=== PATIENT | male | born 1985 | race Caucasian/White ===

== ENCOUNTER 2018-06-10 17:02 | Emergency (ER) | payer SELFPAY ==
[2018-06-10 17:03] VITALS: BP 130/84; PULSE 102; RESP 18; TEMP 36.4; O2SAT 97; BMI 25.7
--- NOTE | 2018-06-10 17:40 | ED.VISSUMM ---
- ER Visit Summary Date of Service: 06/10/18 Chief Complaint: Intermittent right trapezius/shoulder and upper back pain for the past couple years History of Present Illness: The patient is a 32 M who is right-hand dominant presents with pain that is localized over the trapezius muscle, proximal humerus and para dorsal spine on the right. He denies any history of direct trauma. He denies radicular pain. He denies paresthesia, anesthesia buttocks. He denies any cardiac or respiratory symptoms. He states he had an MRI which reportedly revealed herniated disc. This MRI was not done at this facility. He states his former doctor was able look at his shoulder and tell him there was something wrong. Physical Examination: Vital signs noted. There is pain palpation over the trapezius muscle. There is pain with abduction past 90?. Axillary, median, radial and ulnar function intact. Biceps, brachialis and triceps reflex are 1+ and symmetric. Radial pulse is palpable and 2+. Motor strength is 5/5. Sensations intact. Heart is regular without murmur, gallop or rub. S1 and S2 are normal. Lungs are clear to auscultation with good movement of air bilaterally. There is reproducible right kari-dorsal discomfort. Test Results: None Emergency Department Course and Treatment: Naprosyn since there is no contraindication to NSAIDs Treatment Plan: Rest, ice and anti-inflammatory. Since his physician retired he is referred to Disposition: Discharge to home Impression: Right impingement syndrome Right trapezius/paradorsal muscle strain This note was generated with [employer] dictation software. It may contain incorrect words, spelling, and punctuation that were not noted in review of the chart prior to signing ED Disposition - Plan for ED Patient: Disposition: Home or Assisted Living Chief Complaint: Back Instructions: What Is Impingement Syndrome?, ED Sprain Thoracic Spine Prescriptions: Naproxen [Naprosyn] 500 mg PO BID #14 tablet Referrals: Care Physician,No Primary [Primary Care Provider] - Sandra Guan MD [COURTESY STAFF PHYSICIAN] - 3-5 Days Additional Instructions: Your prescription was electronically transmitted to [facility] pharmacy, your preferred pharmacy
[2018-06-10] MEDS: Naproxen 250 MG Tablet 500 MG PO (18:26)
[2018-06-10 18:30] VITALS: BP 135/84; PULSE 96; RESP 16; O2SAT 96
== END 2018-06-10 18:31 | disposition home or self-care (01) ==
LOC: ED 18:06
PROVIDERS: Emergency Provider Emergency Medicine
DX: M75.41 Impingement syndrome of right shoulder (principal); S29.012A Strain of muscle and tendon of back wall of thorax, initial encounter; S46.812A Strain of other muscles, fascia and tendons at shoulder and upper arm level, left arm, initial encounter; X58.XXXA Exposure to other specified factors, initial encounter; Y93.9 Activity, unspecified; Y92.9 Unspecified place or not applicable
CPT/HCPCS: 99282

== ENCOUNTER 2018-06-30 19:06 | Emergency (ER) | payer SELFPAY ==
[2018-06-30 19:07] VITALS: BP 146/74; PULSE 107; RESP 15; TEMP 36.6; O2SAT 96; BMI 22.7
--- NOTE | 2018-06-30 19:49 | ED.DCSUM_ITS ---
- ER Visit Summary Date of Service: 06/30/18 Chief Complaint: Neck pain History of Present Illness: The patient is a 32 M presenting with right-sided neck pain. He states this has been intermittent for the past 2 months. He states he does a lot of twisting and turning at work. Denies direct trauma. Denies numbness or weakness. He tried ibuprofen today at home. He does not currently have a primary care physician. Denies other complaints. Physical Examination: Vitals are stable. Patient is afebrile. Alert no acute distress. HEENT exam is unremarkable. Neck is right paraspinal cervical muscle tenderness, no midline tenderness Lungs are clear and equal bilaterally. Heart is regular rate and rhythm. Abdomen is soft nontender nondistended. Extremities are unremarkable. Skin is warm and dry. No focal neurologic deficit. Normal strength and sensation Remainder of exam is unremarkable. Emergency Department Course and Treatment: Patient is given prescription for Naprosyn and Flexeril. He is advised to follow-up with Dr. Guan examination scorer for no doc. Advised return to the ED for worsening complaints. Disposition: Discharge home Impression: Neck strain This note was generated with [employer] dictation software. It may contain incorrect words, spelling, and punctuation that were not noted in review of the chart prior to signing ED Disposition - Plan for ED Patient: Chief Complaint: Other, Pain/Inj Referrals: Care Physician,No Primary [Primary Care Provider] -
--- NOTE | 2018-06-30 19:49 | ED.DEP ---
ED Disposition - Plan for ED Patient: Chief Complaint: Other, Pain/Inj Instructions: ED Sprain Strain Neck Prescriptions: Naproxen [Naprosyn] 500 mg PO BID PRN #20 tablet Cyclobenzaprine [Flexeril] 10 mg PO TID PRN #20 tablet PRN Reason: Muscle Spasm Referrals: Care Physician,No Primary [Primary Care Provider] - Sandra Guan MD [COURTESY STAFF PHYSICIAN] -
[2018-06-30 20:07] VITALS: RESP 18
== END 2018-06-30 20:19 | disposition home or self-care (01) ==
PROVIDERS: Emergency Provider Emergency Medicine
DX: S16.1XXA Strain of muscle, fascia and tendon at neck level, initial encounter (principal); X50.1XXA Overexertion from prolonged static or awkward postures, initial encounter; Y93.9 Activity, unspecified; Y99.0 Civilian activity done for income or pay; Z72.0 Tobacco use
CPT/HCPCS: 99282

== ENCOUNTER 2019-07-05 05:55 | Emergency (ER) | payer SELFPAY ==
[2019-07-05 05:57] VITALS: BP 128/84; PULSE 112; RESP 16; TEMP 36.8; O2SAT 98; BMI 22.9
[2019-07-05 06:01] VITALS: BP 128/84; PULSE 112; RESP 16; TEMP 36.8; O2SAT 98
[2019-07-05] MEDS: oxyCODONE 5 MG Tablet PO (06:22)
[2019-07-05] MEDS: Clindamycin HCl 150 MG Capsule 300 MG PO (06:22)
--- NOTE | 2019-07-05 06:36 | ED.VIS.GEN ---
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 He states is been present and worsening for the past 3 to 4 days. He has had no spontaneous drainage but friend did de-roof it earlier today and get some pus out. Patient previously went to [facility] ER last night but the wait was too long so he left. Patient is having significant pain but denies any associated fever or chills. States the pain is worse when he tries to move his leg or walk or with direct palpation. Patient denies any other complaints at this time. Past Medical History - Allergies and Home Meds Allergies/Adverse Reactions: Allergies cephalexin monohydrate [From Keflex] Allergy (Verified 07/05/19 06:01) Hives diphenhydramine HCl [From Benadryl] Allergy (Verified 07/05/19 06:01) Shortness of breath tramadol Adverse Reaction (Verified 07/05/19 06:01) Nausea/Vom/Diarrhea Primary Care Physician: Care Physician,No Primary [Primary Care Provider] - Past Medical History: - - MRSA Surgical History: no surgical history Smoking Status: Current every day smoker Review of Systems All systems negative except as indicated Skin: Reports: Rash - Left thigh, Abscess - Left thigh Physical Exam Vital Signs/Narrative: Vital Signs Temp Pulse Resp BP Pulse Ox 07/05/19 05:57 98.3 F 112 H 16 128/84 H 98 Inital Vital Signs reviewed: Yes General: Well nourished, Well developed, No Acute Distress Head: Normocephalic, Atraumatic Eyes: Perrl, EOMI ENT: Moist mucous membranes, No rhinorrhea Neck: Supple, Nontender Cardiovascular: Regular rate, Regular rhythm Respiratory: No distress, CTA bilaterally Abdomen: Soft, Nontender, Nondistended Back: Nontender, Normal Inspection Extremities: No edema, Tenderness - Left thigh at area of abscess Skin: - - Left medial, distal thigh 4 cm x 4 cm area of induration and fluctuance that is significantly tender to palpation in the center of a 14 cm x 14 cm area of erythema and warmth Neurological: Alert, Oriented x3, Cranial nerves II-XII grossly intact, Normal Strength, Normal Sensation Psychological: Normal affect, Normal Mood Diagnostic/Tx/Re-eval - Medical Decision Making Patient has an abscess on his left thigh with surrounding erythema concerning for cellulitis. He is hemodynamically stable. He does not have systemic symptoms. He is given an Percocet for pain and clindamycin in the ER. I&D is performed. See procedure note. Patient discharged home with antibiotics and a short course of medication for pain control. OARRS report is checked the patient does not have any active or frequent opioid prescriptions. He is given referral information for PCP for outpatient follow-up. He is counseled on the signs and symptoms of infection. He is counseled that this might worsen and he might need to return for IV antibiotics. He verbalizes agreement understanding with this. Wound edges are marked with pen while in the ER. Patient is counseled on signs and symptoms requiring return to the emergency room. Patient verbalizes agreement and understand this plan. Patient discharged home in stable and improved condition. Procedures Procedure(s): Incision and drainage. Area anesthetized with 2 cc of 1% lidocaine. Once adequate analgesia was achieved a #10 blade is used to make a 2 cm linear incision over maximum area of fluctuance. Purulent material was expressed. Hemostats used to open up any potential loculations. Patient did have significant pain with procedure but tolerated relatively well. No significant bleeding. No obvious complication. ED Disposition - Plan for ED Patient: Disposition: Home or Assisted Living Diagnosis: Abscess Instructions: ABSCESS, Incision and Drainage, MRSA SKIN INFECTION, Suspected or Confirmed Prescriptions: Clindamycin [Cleocin] 450 mg PO TID #63 cap Prescription Printed Ibuprofen [Motrin] 600 mg PO Q8H PRN PRN #20 tab PRN Reason: Pain Or Fever Prescription Printed Hydrocodone Bitart/Apap 5-325 [[place] 5MG-325MG] 1 tab PO Q6H PRN PRN 2 Days #4 tab PRN Reason: Pain Prescription Printed Referrals: Care Physician,No Primary [Primary Care Provider] - Adrián Welsh DO [NON CLINICAL AFFILIATE] - Additional Instructions: Apply warm compresses multiple times a day. Keep wound covered to prevent getting dirty. Take antibiotics as prescribed. If the redness or pain is worsening, especially after 2 days please return to the emergency room for wound check. Please follow-up with your primary care doctor you were referred to for wound check.
[2019-07-05 07:01] VITALS: BP 128/84; PULSE 112; RESP 16; TEMP 36.8; O2SAT 98
[2019-07-05] MEDS: Famotidine 20 MG Tablet PO (07:51)
== END 2019-07-05 08:21 | disposition home or self-care (01) ==
PROVIDERS: Emergency Provider Emergency Medicine
DX: L02.416 Cutaneous abscess of left lower limb (principal); F17.200 Nicotine dependence, unspecified, uncomplicated; Z86.14 Personal history of Methicillin resistant Staphylococcus aureus infection
CPT/HCPCS: 10060; 99283

== ENCOUNTER 2019-11-19 21:49 | Emergency (ER) | payer SELFPAY ==
[2019-11-19 21:49] VITALS: BP 119/66; PULSE 112; RESP 16; TEMP 36.7; O2SAT 98; BMI 25.1
--- NOTE | 2019-11-19 23:04 | ED.VIS.GEN ---
History of Present Illness Chief Complaint: Abscess Informant: Patient Onset: Weeks - 1 Context: Gradual Onset Timing: Continuous Quality: sore Location: lower abd wall Current Severity: Moderate Maximum Severity: Moderate Worsened by: palpation Relieved by: leaving alone Associated Symptoms: none Narrative: Doing warm soaks and bathtub. Got 1 of the lesions to drain and then another one nearby popped up and has really not drained yet. No systemic symptoms. Denies injecting anything with needles. Prior similar symptoms: Yes - cutaneous abscesses in past Past Medical History - Allergies and Home Meds Allergies/Adverse Reactions: Allergies cephalexin monohydrate [From Keflex] Allergy (Verified 11/19/19 21:49) Hives diphenhydramine HCl [From Benadryl] Allergy (Verified 11/19/19 21:49) Shortness of breath tramadol Adverse Reaction (Verified 11/19/19 21:49) Nausea/Vom/Diarrhea Primary Care Physician: Care Physician,No Primary [Primary Care Provider] - Surgical History: no surgical history Lives: Alone Smoking Status: Current every day smoker Review of Systems General: Denies: Chills, Fever, Sweats Gastrointestinal: Reports: Abdominal pain - abd wall only. Denies: Nausea, Vomiting Skin: Reports: Abscess. Denies: Rash Neurological: Denies: Headache, Weakness, Numbness Physical Exam Vital Signs/Narrative: Vital Signs Temp Pulse Resp BP Pulse Ox 11/19/19 21:49 98.1 F 112 H 16 119/66 98 Inital Vital Signs reviewed: Yes General: Well nourished, Well developed, No Acute Distress - well-appearing Abdomen: Soft, Nondistended, Normal bowel sounds, Tender - only at abd wall abscess x 2, infraumbilical. Negative for: Guarding, Rebound tenderness Extremities: Nontender, No edema Skin: No rash, - - 4cm infraumbilical pointing, tender, indurated abscess w/o active drainage; resolving lesion just right and superior to this without abscess present or need for I&D. Neurological: Alert, Oriented x3, Cranial nerves II-XII grossly intact, Normal Strength, Normal Sensation, Normal Gait Psychological: Normal affect, Normal Mood Diagnostic/Tx/Re-eval - Medical Decision Making Incision and drainage was performed, see the procedure note. It was relatively limited however I was able to deloculated and expressed quite a bit of purulent material, not necessarily as much as I would have liked. The patient understands and will continue to do soaks at home, he was started on Bactrim given appropriate discharge instructions. Procedures Procedure(s): Simple incision and drainage cutaneous abscess abdominal wall. Anesthetized with 5 cc local 1% lidocaine after isopropanol prep, followed by chlorhexidine prep incision with a #11 blade centrally at the place of maximal pointing, large amount of purulent material was expressed. I attempted to deloculated, but soon thereafter the patient was withdrawing and pain uncontrollably, and after expressing some pus and attempting to irrigate the cavity, I chose to abort the procedure out of safety for myself and the patient since he was not able to remain still. ED Disposition - Plan for ED Patient: Disposition: Home or Assisted Living Diagnosis: Cutaneous abscess of abdominal wall Instructions: ABSCESS, Incision and Drainage, MRSA SKIN INFECTION, Suspected or Confirmed Prescriptions: Sulfamethoxazole/Trimethoprim [Bactrim Ds Tablet] 1 ea PO BID #20 tab Transmission Status: Pending to [id number] Referrals: Fawn Lennon [NON-STAFF] - 1 Week if not improving (or ER)
[2019-11-19] MEDS: Smz/Tmp Ds Tablet 1 TABLET PO (23:23)
[2019-11-20 00:07] VITALS: RESP 16
[2019-11-20] MEDS: Ibuprofen 600 MG Tablet PO (00:12)
== END 2019-11-20 00:13 | disposition home or self-care (01) ==
PROVIDERS: Emergency Provider Emergency Medicine
DX: L02.211 Cutaneous abscess of abdominal wall (principal); F17.200 Nicotine dependence, unspecified, uncomplicated
CPT/HCPCS: 10060; 99283